=== PATIENT | male | born 1940 | race Caucasian/White ===

== ENCOUNTER 2024-11-20 14:45 | Emergency (ER) | payer MEDICARE, SELFPAY ==
[2024-11-20 14:46] VITALS: BP 180/78; PULSE 105; RESP 16; TEMP 36.8; O2SAT 100; BMI 28.3
--- NOTE | 2024-11-20 14:55 | EDS_ITS ---
HPI History of Present Illness Chief Complaint: Head Injury Detail of Chief Complaint: Mechanical fall with trauma to the right maxillary area, right postauricula Onset/Context/Timing Onset: Today and Hours Mechanism/Context: Blunt Injury and Fall Location of pain/injuries: - (Patient had) Quality of Pain: Dull and Aching Current Severity: Mild Maximum Severity: Moderate Worsened by: Palpation Relieved by: Not applicable Associated Symptoms Associated Symptoms: Negative for Parasthesias, Weakness, Loss of function, Inability to ambulate, Loss of consciousness or Amnesia Narrative Narrative: Patient is an 84-year-old male. He states he normally walks around the hitch. Apparently he did not and fell. He is getting ready to paint his trailer. He sustained a laceration of the right maxillary area and has a bump with pain right postauricular/occipital area. He denies headache. He denies nausea or vomiting. He denies double vision, blurred vision loss of vision. He denies neck pain. He denies paresthesia, anesthesia or weakness in his extremities. He denies problems with balance or coordination. Prior similar symptoms: No Recent Illness/Hospitalization: No PFSH [facility] Medical History (Updated 11/20/24 @ 15:[address] Saeid Caban MD) Cataract Thyroid disease Back pain Depression HTN (hypertension) Hypercholesteremia Home Medications ?Medication ?Instructions ?Recorded ?Last Taken ?Type Unobtainable 11/20/24 Unknown History Allergy/AdvReac Type Severity Reaction Status Date / Time No Known Allergies Allergy Verified 11/20/24 14:46 Family History no significant family his Surgical History (Updated 11/20/24 @ 15:03 by Laura Moody) H/O eye surgery History of back surgery History of epidural steroid injection into lumbar spine Social History (Updated 11/20/24 @ 15:03 by Laura Moody) household members: significant other Smoking Status: Never smoker ROS ROS ED Eyes Eyes: Denies blurry vision or change in vision ENT ENT ED: Reports other Details: Negative epistaxis. Negative dental trauma or malalignment no difficulty opening or closing his mouth fully ; Denies rhinorrhea or sore throat Cardiovascular Cardiovascular: Denies chest pain or palpitations Respiratory/Chest Respiratory/Chest: Denies cough or dyspnea Gastrointestinal Gastrointestinal: Denies abdominal pain, nausea or vomiting Musculoskeletal Musculoskeletal: Denies back pain or neck pain Integumentary Reports other Details: Laceration face over the right maxillary area Neurologic Neurologic: Denies headache(s) or paresthesias Endocrine Endocrinology: Denies cold intolerance or heat intolerance Hematologic/Lymphatic Hematologic/Lymphatic: Reports easy bruising EXAM Physical Exam Const Vital Signs: 11/20/24 14:46 11/20/24 15:06 Temperature 98.2 F Temperature Source Oral Pulse Rate 105 H Respiratory Rate 16 Respiratory Effort Normal Non-Labored Respiratory Depth Normal Respiratory Pattern Normal Blood Pressure 180/78 H Blood Pressure Mean 112 Pulse Ox 100 Oxygen Delivery Method Room Air Positive well nourished and well developed General Appearance ED: well developed and NAD HEENT HEENT Narrative: There is tenderness to the right occipital/postauricular area. Area of ecchymosis and swelling. There is no palp depression. There is no trauma to his ears. No clinical signs of basilar skull fracture. No septal deviation hematoma. No dental trauma. No trismus or evidence of malocclusion. trauma and tenderness; Negative for atraumatic Eyes PERRL and EOMs intact bilaterally Neck full ROM General: Negative for tenderness Resp normal respiratory effort and clear to auscultation bilaterally Cardio regular rhythm, S1 normal heart sound, S2 normal heart sound and no murmurs Rate: regular rate Back/Spine normal to inspection and no thoracic nor lumbar tenderness Extremity normal to inspection and full ROM Neuro oriented x3, CN's II-XII intact bilaterally, moves all extremities, no focal motor deficits and no sensory deficits noted [place] Coma Scale: document GCS findings Spontaneous Oriented Sensorium / Orientation: alert Psych mental status grossly normal Skin no rashes or lesions noted, skin turgor normal and no jaundice Skin Narrative: Irregular left shaped laceration predominantly linear over the right cheek. There is no palpable pression. There is no active bleeding. PROC Procedures Other Procedures Procedure(s): Facial laceration over the right maxillary region is to centimeters in length this is a curvilinear irregular laceration. Patient was prepped draped sterile manner. The wound was anesthetized with 1% lidocaine by local filtration. Patient required supplementation. Using 6-0 Ethilon 5 6 simple interrupted stitches placed with good cosmesis hemostasis. MDM MDM MDM Narrative Medical decision making narrative: With evidence of head trauma on anticoagulant per literature CT was ordered to rule out epidural hematoma, subdural hematoma, traumatic subarachnoid hemorrhage or intraparenchymal contusion. His facial laceration will require repair. There be a separate procedure note. Including the differential is concussion. Will need to get a list of his meds since he is never been here before and there is no prior records. Radiography Diagnostic Testing: Clinical Impression(s) from Imaging Studies Brain CT 11/20/24 15:10 IMPRESSION: No CT evidence for acute intracranial hemorrhage, infarct, or significant mass effect. Right posterior scalp hematoma. Reading Location: [facility] CT head without contrast reveals no evidence of fracture, subdural hematoma, epidural hematoma, traumatic subarachnoid hemorrhage or parenchymal contusion. There is no fluid in the sinuses noted either. Awaiting formal read by radiologist, 1524. Will suture patient's facial laceration since there is no obvious bleed noted Discharge Plan Triage Chief Complaint: Head Injury ED Provider: Saeid Caban Dx/Rx/DC Orders Clinical Impression: Concussion without loss of consciousness, initial encounter, Hematoma of occipital region of scalp, Facial laceration, Elevated blood pressure reading Instructions: ED Concussion, ED Hypertension, To Be Confirmed, ED Laceration, All Closures, ED Laceration Minimize Scars Prescriptions: No Action Unobtainable Primary Care Provider: Camacho Felix Referrals: Camacho Felix MD [Primary Care Provider] - 5 Days for suture removal Activity Restrictions/Additional Instructions: 1. Call your doctors office today to have stitches removed in 5 days. 2. Apply bacitracin ointment twice a day 3. Will take 3 to 6 months to determine what the final appearance of the scar will look like. Print Language: Malay Disposition Disposition: Home, Self Care
[2024-11-20] MEDS: Lidocaine 1% (20 ml mdv) 20 ML Vial INFILT (14:58)
--- NOTE | 2024-11-20 15:10 | CT_ITS ---
PROCEDURE: BRAIN/HEAD WITHOUT CONTRAST 11/20/2024 REASON FOR EXAM: HEAD TRAUMA ON ANTICOAGULANT, RIGHT POSTAURICULAR TECHNIQUE: Procedure Code: CTBR Modality: CT Procedure: BRAIN/HEAD WITHOUT CONTRAST Coronal and Sagittal reconstruction series were provided. One or more dose reduction techniques were used (e.g., Automated exposure control, adjustment of the mA and/or kV according to patient size, use of iterative reconstruction technique. RADIATION DOSE SUMMARY: DLP: 952.62 mGycm COMPARISON: None available. FINDINGS: No acute hemorrhage. No acute infarct. Patchy nonspecific periventricular and subcortical white matter hypodensities likely reflect chronic microvascular ischemic changes. No significant mass effect or brain herniation. The ventricular system and sulci/fissures are within normal limits of size and configuration for the patient's stated age. No extra-axial fluid collection. The basal cisterns are patent. The mastoid air cells are clear. The paranasal sinuses are predominantly clear. Bilateral ocular lens replacement. The calvarium appears intact. Right posterior scalp hematoma. CT/Brain/Head without Contrast IMPRESSION: No CT evidence for acute intracranial hemorrhage, infarct, or significant mass effect. Right posterior scalp hematoma. Reading Location: [id number]
[2024-11-20 16:02] VITALS: BP 142/66; PULSE 67; RESP 14; TEMP 36.8; O2SAT 100
== END 2024-11-20 16:02 | disposition home or self-care (01) ==
PROVIDERS: Emergency Provider Emergency Medicine; PCP Family Medicine; Visit Provider Emergency Medicine
DX: S06.0X0A Concussion without loss of consciousness, initial encounter (principal); S01.81XA Laceration without foreign body of other part of head, initial encounter; W19.XXXA Unspecified fall, initial encounter
CPT/HCPCS: 12011; 70450; 99284